=== PATIENT | male | born 1935 | race Caucasian/White ===

== ENCOUNTER 2017-07-25 13:45 | Emergency (ER) | payer OTHER ==
[2017-07-25 13:56] VITALS: BP 163/78
--- NOTE | 2017-07-25 14:46 | ER Document Report ---
ED General - General Chief Complaint: Abscess Stated Complaint: LEFT SHOULDER PAIN Time Seen by Provider: 07/25/17 14:44 Mode of Arrival: Ambulatory Information source: Patient Notes: 82 yr old male presents with complaints of left shoulder abscess cyst. Pt denies any fevers or chills, had similar episode i nthe past which was incised and drained 10 years aog, notes it has gotten angry in the past week , started on doxy by pcp TRAVEL OUTSIDE OF THE [place] IN LAST 30 DAYS: No - HPI Onset: Last week Onset/Duration: Persistent, Worse Quality of pain: Achy Severity: Moderate Pain Level: 3 Associated symptoms: Other Exacerbated by: Denies Relieved by: Denies Similar symptoms previously: Yes Recently seen / treated by doctor: Yes - Related Data Allergies/Adverse Reactions: codeine [Codeine] Allergy (Verified 07/25/17 13:53) Hallucinations midazolam HCl [From Versed] Allergy (Verified 07/25/17 13:53) Hyperactivity Home Medications: Current Home Medications Carvedilol [Coreg] 1 tab PO BID 07/25/17 [History] Furosemide 40 mg PO Q2DAYS 07/25/17 [History] Insulin Glargine,Hum.rec.anlog [Lantus Insulin 100 Unit/1 ml 10 ml] 22 unit SUBCUT DAILY 07/25/17 [History] Spironolactone 25 mg PO QAM 07/25/17 [History] Past Medical History - Social History Smoking Status: Never Smoker Cigarette use (# per day): No Chew tobacco use (# tins/day): No Smoking Education Provided: No Family History: Reviewed & Not Pertinent Patient has suicidal ideation: No Patient has homicidal ideation: No - Past Medical History Cardiac Medical History: Reports: Hx Congestive Heart Failure, Hx Coronary Artery Disease, Hx Heart Attack, Hx Hypertension, Hx Peripheral Vascular Disease Denies: Hx DVT, Hx Hypercholesterolemia, Hx Pulmonary Embolism Pulmonary Medical History: Denies: Hx Asthma, Hx COPD Neurological Medical History: Reports: Hx Cerebrovascular Accident. Denies: Hx Seizures Endocrine Medical History: Reports: Hx Diabetes Mellitus Type 1, Hx Diabetes Mellitus Type 2 - IDDM. Denies: Hx Hyperthyroidism, Hx Hypothyroidism Renal/ Medical History: Denies: Hx Peritoneal Dialysis Malignancy Medical History: Reports Hx Skin Cancer - lower lip excision GI Medical History: Reports: Hx Gastroesophageal Reflux Disease. Denies: Hx Cirrhosis, Hx Hepatitis Musculoskeltal Medical History: Reports Hx Arthritis Psychiatric Medical History: Reports: Hx Depression - Mild Infectious Medical History: Denies: Hx Hepatitis Past Surgical History: Reports: Hx Abdominal Surgery - hernia repair, Hx Adenoidectomy, Hx Appendectomy, Hx Cardiac Catheterization - with stents, Hx Cardiac Surgery - CABG; pacer, Hx Cholecystectomy, Hx Coronary Artery Bypass Graft - 3 vessel in 1998, Hx Coronary Stent - several, last one 5 years ago., Hx Pacemaker, Hx Tonsillectomy, Hx Vascular Surgery - AAA repair, Right Aorto- fem bypass, Other - Rerouting of his bile duct drainage into his small intestine , per patient - Immunizations Hx Diphtheria, Pertussis, Tetanus Vaccination: Yes Review of Systems - Review of Systems Notes: REVIEW OF SYSTEMS: CONSTITUTIONAL : Denies fever, chills, or sweats. Denies recent illness. EENT: Denies eye, ear, throat, or mouth pain or symptoms. Denies nasal or sinus congestion or discharge. Denies throat, tongue, or mouth swelling or difficulty swallowing. CARDIOVASCULAR: Denies chest pain. Denies palpitations or racing or irregular heart beat. Denies ankle edema. RESPIRATORY: Denies cough, cold, or chest congestion. Denies shortness of breath, difficulty breathing, or wheezing. GASTROINTESTINAL: Denies abdominal pain or distention. Denies nausea, vomiting , or diarrhea. Denies blood in vomitus, stools, or per rectum. Denies black, tarry stools. Denies constipation. GENITOURINARY: Denies difficulty urinating, painful urination, burning, frequency, blood in urine, or discharge. MUSCULOSKELETAL: Denies back or neck pain or stiffness. Denies joint pain or swelling. SKIN: abscess left shoulder HEMATOLOGIC : Denies easy bruising or bleeding. LYMPHATIC: Denies swollen, enlarged glands. NEUROLOGICAL: Denies confusion or altered mental status. Denies passing out or loss of consciousness. Denies dizziness or lightheadedness. Denies headache. Denies weakness or paralysis or loss of use of either side. Denies problems with gait or speech. Denies sensory loss, numbness, or tingling. Denies seizures. PSYCHIATRIC: Denies anxiety or stress. Denies depression, suicidal ideation, or homicidal ideation. ALL OTHER SYSTEMS REVIEWED AND NEGATIVE. Dictation was performed using Mystery[employer] recognition software PHYSICAL EXAMINATION: GENERAL: Well-appearing, well-nourished and in no acute distress. HEAD: Atraumatic, normocephalic. EYES: Pupils equal round and reactive to light, extraocular movements intact, sclera anicteric, conjunctiva are normal. ENT: Nares patent, oropharynx clear without exudates. Moist mucous membranes. NECK: Normal range of motion, supple without lymphadenopathy LUNGS: Breath sounds clear to auscultation bilaterally and equal. No wheezes rales or rhonchi. HEART: Regular rate and rhythm without murmurs ABDOMEN: Soft, nontender, nondistended abdomen. No guarding, no rebound. No masses appreciated. Musculoskeletal: Normal range of motion, no pitting or edema. No cyanosis. NEUROLOGICAL: Cranial nerves grossly intact. Normal speech, normal gait. Normal sensory, motor exams PSYCH: Normal mood, normal affect. SKIN: large cyst erythemetous 10x10 cm Physical Exam - Vital signs Vitals: Temp Pulse Resp BP Pulse Ox 97.4 F 72 16 163/78 H 99 07/25/17 13:55 07/25/17 13:55 07/25/17 13:55 07/25/17 13:55 07/25/17 13:55 Course - Re-evaluation Re-evalutation: 07/25/17 19:44 10x10 cm abscess of the left shoulder incised and drained large amount of thick pus with cystic material noted pt placed on antibiotics After performing a Medical Screening Examination, I estimate there is LOW risk for OPEN FRACTURE, COMPARTMENT SYNDROME, TENDON RUPTURE, ACUTE NEUROVASCULAR INJURY, or RETAINED FOREIGN BODY, thus I consider the discharge disposition reasonable. Also, there is no evidence or peritonitis, sepsis, or toxicity. I have reevaluated this patient multiple times and no significant life threatening changes are noted. The patient and I have discussed the diagnosis and risks, and we agree with discharging home with close follow-up with the understanding that symptoms and presentations can change. We also discussed returning to the Emergency Department immediately if new or worsening symptoms occur. We have discussed the symptoms which are most concerning (e.g., changing or worsening pain, fever, numbness, weakness, cool or painful digits) that necessitate immediate return. - Vital Signs Vital signs: Temp Pulse Resp BP Pulse Ox 97.4 F 72 16 163/78 H 99 07/25/17 13:55 07/25/17 13:55 07/25/17 13:55 07/25/17 13:55 07/25/17 13:55 Procedures - Incision and Drainage Left Shoulder Time completed: 15:50 Type: Complex, Single Anesthetic type: 1% Lidocaine mL's of anesthetic: 10 Blade size: 11 I&D procedure: Sterile dressing applied Incision Method: Incision made by scalpel Amount/type of drainage: Foul-smelling large amount of pus Discharge - Discharge Clinical Impression: Abscess Condition: Stable Disposition: HOME, SELF-CARE Instructions: Abscess ([facility]) Additional Instructions: Follow-up in 48 hours for reevaluation of your abscess or return immediately if there is any worsening symptoms fevers or any other concerns Prescriptions: Cephalexin Monohydrate [Keflex 500 mg Capsule] 500 mg PO QID #40 capsule Clindamycin HCl 300 mg PO Q6 #40 capsule Hydrocodone/Acetaminophen [Alma 5-325 mg Tablet] 1 tab PO Q6 #14 tablet Sulfamethoxazole/Trimethoprim [Bactrim Ds Tablet] 2 each PO BID #40 tablet Referrals: DEAN TORRES MD [Primary Care Provider] - Follow up as needed
[2017-07-25] MEDS ORDERED: LIDOCAINE 1% INJ-PF (10 MG/ML) 30 ML SDV ONE (14:48)
[2017-07-25] MEDS ORDERED: LIDOCAINE 1% INJ-PF (10 MG/ML) 30 ML SDV INFIL ONE (14:50)
[2017-07-25] MEDS ORDERED: LIDOCAINE 1% INJ-PF (10 MG/ML) 30 ML SDV INJ ONE (14:50)
== END 2017-07-25 15:57 | disposition home or self-care (01) ==
LOC: ER 13:45
PROC: 0H9CXZZ Drainage of Left Upper Arm Skin, External Approach (ICD-10-PCS; principal; 2017-07-25)
DX: L02.414 Cutaneous abscess of left upper limb (principal); M25.512 Pain in left shoulder
CPT/HCPCS: 99283

== ENCOUNTER 2017-07-28 13:24 | Emergency (ER) | payer OTHER ==
[2017-07-28 13:55] VITALS: BP 109/76
--- NOTE | 2017-07-28 14:35 | ER Document Report ---
ED Wound - General Chief Complaint: Wound Recheck Stated Complaint: WOUND RECHECK Time Seen by Provider: 07/28/17 14:32 Notes: Patient is an 82-year-old male presents emergency department for wound check. Patient was here for an I&D on 25 July. And initiated on antibiotics. Patient denies any fever, chills. Minimal bleeding from the site but otherwise denies any pain, drainage. It has been taking medications as prescribed. TRAVEL OUTSIDE OF THE [place] IN LAST 30 DAYS: No - Related Data Allergies/Adverse Reactions: codeine [Codeine] Allergy (Verified 07/25/17 13:53) Hallucinations midazolam HCl [From Versed] Allergy (Verified 07/25/17 13:53) Hyperactivity Past Medical History - Social History Smoking Status: Unknown if Ever Smoked Family History: Reviewed & Not Pertinent Patient has suicidal ideation: No Patient has homicidal ideation: No - Past Medical History Cardiac Medical History: Reports: Hx Congestive Heart Failure, Hx Coronary Artery Disease, Hx Heart Attack, Hx Hypertension, Hx Peripheral Vascular Disease Denies: Hx DVT, Hx Hypercholesterolemia, Hx Pulmonary Embolism Pulmonary Medical History: Denies: Hx Asthma, Hx COPD Neurological Medical History: Reports: Hx Cerebrovascular Accident. Denies: Hx Seizures Endocrine Medical History: Reports: Hx Diabetes Mellitus Type 1, Hx Diabetes Mellitus Type 2 - IDDM. Denies: Hx Hyperthyroidism, Hx Hypothyroidism Renal/ Medical History: Denies: Hx Peritoneal Dialysis Malignancy Medical History: Reports Hx Skin Cancer - lower lip excision GI Medical History: Reports: Hx Gastroesophageal Reflux Disease. Denies: Hx Cirrhosis, Hx Hepatitis Musculoskeltal Medical History: Reports Hx Arthritis Psychiatric Medical History: Reports: Hx Depression - Mild Infectious Medical History: Denies: Hx Hepatitis Past Surgical History: Reports: Hx Abdominal Surgery - hernia repair, Hx Adenoidectomy, Hx Appendectomy, Hx Bowel Surgery - bile duct rerouted into small intestines, Hx Cardiac Catheterization - with stents, Hx Cardiac Surgery - CABG; pacer, Hx Cholecystectomy, Hx Coronary Artery Bypass Graft - 3 vessel in 1998, Hx Coronary Stent - several, last one 5 years ago., Hx Pacemaker, Hx Tonsillectomy, Hx Vascular Surgery - AAA repair, Right Aorto-fem bypass, Other - Rerouting of his bile duct drainage into his small intestine, per patient - Immunizations Hx Diphtheria, Pertussis, Tetanus Vaccination: Yes Physical Exam - Vital signs Vitals: Temp Pulse Resp BP Pulse Ox 97.7 F 79 20 109/76 94 07/28/17 13:52 07/28/17 13:52 07/28/17 13:52 07/28/17 13:52 07/28/17 13:52 - General General appearance: Appears well, Alert In distress: None - Extremities General upper extremity: Nontender, Normal color, Normal ROM, Normal strength, Normal temperature - Skin Skin irregularity: Abscess - Left shoulder blade with previous I&D site with packing. Site without any surrounding induration mild erythema otherwise nontender to palpation Course - Re-evaluation Re-evalutation: 07/28/17 14:51 Patient is an 82-year-old male who is hemodynamic with stable, no acute distress and afebrile. Approximately 12 inches of packing removed from the wound with yellow drainage on them. Wound was repacked with iodoform gauze and dressed with dry sterile dressing. Patient follow-up in 3 days for wound check patient agrees with plan. - Vital Signs Vital signs: Temp Pulse Resp BP Pulse Ox 97.7 F 79 20 109/76 94 07/28/17 13:52 07/28/17 13:52 07/28/17 13:52 07/28/17 13:52 07/28/17 13:52 Discharge - Discharge Clinical Impression: Wound check, abscess Condition: Good Disposition: HOME, SELF-CARE Instructions: Post Incision and Drainage Additional Instructions: Please follow-up in 3 days for wound check. Referrals: DEAN TORRES MD [Primary Care Provider] - Follow up as needed
== END 2017-07-28 15:00 | disposition home or self-care (01) ==
LOC: ER 13:24
DX: Z48.01 Encounter for change or removal of surgical wound dressing (principal); L02.414 Cutaneous abscess of left upper limb; E11.51 Type 2 diabetes mellitus with diabetic peripheral angiopathy without gangrene; I25.10 Atherosclerotic heart disease of native coronary artery without angina pectoris; I25.2 Old myocardial infarction; I10 Essential (primary) hypertension; Z88.5 Allergy status to narcotic agent; Z88.4 Allergy status to anesthetic agent; Z85.828 Personal history of other malignant neoplasm of skin
CPT/HCPCS: 99282

== ENCOUNTER 2017-08-13 21:35 | Emergency (ER) | payer OTHER | END 2017-08-14 00:42 | disposition left against medical advice (07) | LOC: ER 21:35 | DX: Z53.9 Procedure and treatment not carried out, unspecified reason (principal); R11.10 Vomiting, unspecified; R10.9 Unspecified abdominal pain ==

== ENCOUNTER 2018-05-22 03:28 | Emergency (ER) | payer OTHER ==
[2018-05-22] MEDS ORDERED: ASPIRIN 81 MG TABLET, CHEWABLE PO ONE (03:33)
--- NOTE | 2018-05-22 03:39 | ER Document Report ---
ED Cardiac - General Mode of Arrival: Medic Information source: Patient TRAVEL OUTSIDE OF THE [place] IN LAST 30 DAYS: No <BERNABE ESPARZA - Last Filed: 05/22/18 05:30> <JARRODBRENNANDEBBY - Last Filed: 05/22/18 06:28> - General Stated Complaint: CHEST PAIN Time Seen by Provider: 05/22/18 03:33 Notes: 83 y.o male with CAD, CHF and HTN presents to the ED via EMS with SOB of onset around 0200 this morning. Pt reports that he woke up around 0200 and had since been SOB and fidgety. Pt describes his discomfort as a chest tightness causing his SOB but he denies any CP. Pt admits to some mild cough lately. He reports a PMHx of CVA, [place] and a PSHx of 3 vessel CABG, heart valve replacement, aortic bypass and defibrillator pacemaker placement. Pt's PCP is Dr. Elkins. 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 ( BERNABE ESPARZA) - Related Data Allergies/Adverse Reactions: codeine [Codeine] Allergy (Verified 07/25/17 13:53) Hallucinations midazolam HCl [From Versed] Allergy (Verified 07/25/17 13:53) Hyperactivity Past Medical History - General Information source: Patient - Social History Smoking Status: Former Smoker - 1987 Chew tobacco use (# tins/day): No Frequency of alcohol use: None Drug Abuse: None Family History: Reviewed & Not Pertinent - Past Medical History Cardiac Medical History: Reports: Hx Congestive Heart Failure, Hx Coronary Artery Disease, Hx Heart Attack, Hx Hypertension, Hx Peripheral Vascular Disease Neurological Medical History: Reports: Hx Cerebrovascular Accident Endocrine Medical History: Reports: Hx Diabetes Mellitus Type 2 - IDDM Renal/ Medical History: Denies: Hx Peritoneal Dialysis Malignancy Medical History: Reports Hx Skin Cancer - lower lip excision GI Medical History: Reports: Hx Gastroesophageal Reflux Disease Musculoskeletal Medical History: Reports Hx Arthritis Psychiatric Medical History: Reports: Hx Depression - Mild Past Surgical History: Reports: Hx Abdominal Surgery - hernia repair, Hx Adenoidectomy, Hx Appendectomy, Hx Bowel Surgery - bile duct rerouted into small intestines, Hx Cardiac Catheterization - with stents, Hx Cardiac Surgery - CABG; pacer, Hx Cholecystectomy, Hx Coronary Artery Bypass Graft - 3 vessel in 1998, Hx Coronary Stent - several, last one 5 years ago., Hx Pacemaker, Hx Tonsillectomy, Hx Vascular Surgery - AAA repair, Right Aorto-fem bypass, Other - Rerouting of his bile duct drainage into his small intestine, per patient - Immunizations Hx Diphtheria, Pertussis, Tetanus Vaccination: Yes <BERNABE ESPARZA - Last Filed: 05/22/18 05:30> Review of Systems - Review of Systems Constitutional: No symptoms reported EENT: No symptoms reported Cardiovascular: See HPI. denies: Chest pain Respiratory: See HPI, Cough, Short of breath Gastrointestinal: No symptoms reported Genitourinary: No symptoms reported Male Genitourinary: No symptoms reported Musculoskeletal: No symptoms reported Skin: No symptoms reported Hematologic/Lymphatic: No symptoms reported Neurological/Psychological: No symptoms reported -: Yes All other systems reviewed and negative <BERNABE ESPARZA - Last Filed: 05/22/18 05:30> Physical Exam <BERNABE ESPARZA - Last Filed: 05/22/18 05:30> <DEBBY HOUSTON - Last Filed: 05/22/18 06:28> - Vital signs Vitals: Resp 26 H 05/22/18 03:31 - Notes Notes: PHYSICAL EXAM GENERAL: Alert, interacts well. Appears SOB. HEAD: Normocephalic, atraumatic. EYES: Pupils equal, round, and reactive to light. Extraocular movements intact. ENT: Oral mucosa moist, tongue midline. NECK: Full range of motion. Supple. Trachea midline. LUNGS: Crackles to LT lower lobe. No wheezes, rales, or rhonchi. Appears SOB. Pt is on oxygen, not hypoxic on oxygen. HEART: Regular rate and rhythm. No murmurs, gallops, or rubs. ABDOMEN: Soft. Mild epigastric tenderness to palpation. Mildly distended. Bowel sounds present in all 4 quadrants. No guarding, rebound, or rigidity. Incisional hernia to abd which is easily reproducible. EXTREMITIES: Moves all 4 extremities spontaneously. Trace edema to feet. Radial and dorsalis pedis pulses 2/4 bilaterally. No cyanosis. NEUROLOGICAL: Alert and oriented x3. Normal speech. PSYCH: Normal affect, normal mood. SKIN: Warm, dry. No rashes or lesions noted. Multiple spider veins. (BERNABE ESPARZA) Course - Laboratory Result Diagrams: 05/22/18 03:01 05/22/18 04:56 <BERNABE ESPARZA - Last Filed: 05/22/18 05:30> - Laboratory Result Diagrams: 05/22/18 03:01 05/22/18 04:56 <DEBBY HOUSTON - Last Filed: 05/22/18 06:28> - Re-evaluation Re-evalutation: 05/22/18 06:20 CBC shows leukocytosis 11.2, mild anemia with hemoglobin of 11.0, platelets slightly low at 141, venous blood gas grossly unremarkable, CMP shows slightly elevated sodium at 146.1, BUN slightly elevated at 26, calcium slightly low at 7.8, troponin positive at 0.297, EKG shows slight ST segment depressions in V5 and V6, chest x-ray shows right lower lobe pneumonia, blood cultures have been obtained, lactic acid normal at 1.1, patient appears quite a bit more comfortable on oxygen. Patient was febrile on arrival, when looking at the infiltrate, leukocytosis, fever and cough I do suspect this infiltrate is a true pneumonia, patient has been started on Rocephin and blood cultures been obtained. After speaking with the resident Dr. Sahara kelsey at [facility] she has asked me to add doxycycline to the antibiotic regimen and obtain a sputum culture. Patient is not bringing up any sputum at this time but we will certainly add this if the patient brings anything up. Patient does have an elevated troponin and a history of congestive heart failure , as we do not have interventional cardiology and he would be high risk for cardiac catheterization the patient cannot stay here, his refrigerator repair technician practices at [facility], this is why have arranged transfer to [facility]. Dr. Shoemaker the resident has accepted the patient on behalf of Dr. Diaz. Also requests that we give Lasix despite the fact that he has no evidence of overt failure at this time. (DEBBY HOUSTON) - Vital Signs Vital signs: Temp Pulse Resp BP Pulse Ox 98.6 F 22 H 128/52 H 98 05/22/18 06:11 05/22/18 06:01 05/22/18 06:01 05/22/18 06:01 - Laboratory Laboratory results interpreted by me: 05/22/18 05/22/18 03:01 04:56 WBC 11.2 H RBC 3.44 L Hgb 11.0 L Hct 34.2 L MCV 99 H RDW 15.8 H Plt Count 141 L Sodium 146.1 H Chloride 112 H BUN 26 H Est GFR (Non-Af Amer) 59 L Glucose 171 H Calcium 7.8 L Total Protein 5.8 L Albumin 3.1 L - EKG Interpretation by Me Additional EKG results interpreted by me: 05/22/18 06:26 EKG shows a combination of sinus rhythm at a date of 76 and AV paced complexes, there is an interventricular conduction delay, some minimal ST segment depressions in V5 and V6, no significant ST segment elevations, there are T- wave inversions in lead I, aVL per my interpretation. (DEBBY HOUSTON) Discharge <BERNABE ESPARZA - Last Filed: 05/22/18 05:30> <DEBBY HOUSTON - Last Filed: 05/22/18 06:28> - Discharge Clinical Impression: Non-STEMI (non-ST elevated myocardial infarction) Right lower lobe pneumonia Qualifiers: Pneumonia type: due to unspecified organism Qualified Code(s): J18.1 - Lobar pneumonia, unspecified organism Condition: Fair Disposition: [facility] Referrals: DEAN ELKINS MD [Primary Care Provider] - Follow up as needed Scribe Attestation: 05/22/18 06:28 I personally performed the services described in the documentation, reviewed and edited the documentation which was dictated to the scribe in my presence, and it accurately records my words and actions. (DEBBY HOUSTON) Scribe Documentation - Scribe Written by Taty:: Taty Charles 05/22/18 0345 acting as scribe for :: Juancho <BERNABE ESPARZA - Last Filed: 05/22/18 05:30>
--- NOTE | 2018-05-22 04:24 | RADIOLOGY REPORT (SQ) ---
EXAM DESCRIPTION: XR CHEST 2 VIEWS COMPLETED DATE/TME: 05/22/2018 03:43 CLINICAL HISTORY: 83 years, Male, cough, fever, SOB COMPARISON: 09/09/2016 NUMBER OF VIEWS: Two TECHNIQUE: Two views of the chest LIMITATIONS: None. FINDINGS: There are right basilar airspace opacities. The heart is at the upper limit of normal in size with a left chest wall pacemaker/AICD in place. There is no pneumothorax or pleural effusion. There is no acute fracture. IMPRESSION: Right basilar airspace opacities, which may represent atelectasis or pneumonia. 2011 [employer]- All Rights Reserved
[2018-05-22 04:26] LABS: ABSOLUTE EOSINOPHILS # (AUTO) 0.2 10^3/uL (0.0-0.6); ABSOLUTE LYMPHOCYTES (AUTO) 3.3 10^3/uL (0.5-4.7); ABSOLUTE MONOCYTES (AUTO) 1.1 10^3/uL (0.1-1.4); ABSOLUTE NEUT (AUTO) 6.6 10^3/uL (1.7-8.2); BASOPHILS % (AUTO) 0.4 % (0-2); EOSINOPHILS % (AUTO) 1.7 % (0-6); HEMATOCRIT 34.2 % (37.9-51.0); LYMPHOCYTES % (AUTO) 29.5 % (13-45); MEAN CORPUSCULAR HEMOGLOBIN 32.1 pg (27.0-33.4); MEAN CORPUSCULAR HGB CONC 32.3 g/dL (32.0-36.0); MEAN CORPUSCULAR VOLUME 99 fl (80-97); MONOCYTES % (AUTO) 9.9 % (3-13); PLATELET COUNT 141 10^3/uL (150-450); RED BLOOD COUNT 3.44 10^6/uL (4.35-5.55); RED CELL DISTRIBUTION WIDTH 15.8 % (11.5-14.0); SEGMENTED NEUTROPHILS % (AUTO) 58.5 % (42-78); TOTAL CELLS COUNTED % (AUTO) 100 %; WHITE BLOOD COUNT 11.2 10^3/uL (4.0-10.5)
[2018-05-22 04:27] LABS: VENOUS BLOOD BASE EXCESS -3.5 mmol/L; VENOUS BLOOD HCO3 20.8 mmol/L (20-32); VENOUS BLOOD PCO2 35.5 mmHg (35-63); VENOUS BLOOD PH 7.39 (7.30-7.42)
[2018-05-22] MEDS ORDERED: CEFTRIAXONE INJ 1000 MG VIAL IV ONE (04:30)
[2018-05-22 04:54] LABS: CREATINE KINASE MB 2.34 ng/mL (<4.55)
[2018-05-22 04:59] LABS: TROPONIN I 0.297 ng/mL
[2018-05-22 05:18] LABS: ALANINE AMINOTRANSFERASE 25 U/L (21-72); ALBUMIN 3.1 g/dL (3.5-5.0); ALKALINE PHOSPHATASE 68 U/L (38-126); ANION GAP 10 (5-19); ASPARTATE AMINO TRANSFERASE 22 U/L (17-59); BILIRUBIN,DIRECT 0.4 mg/dL (0.0-0.4); BILIRUBIN,TOTAL 0.6 mg/dL (0.2-1.3); BLOOD UREA NITROGEN 26 mg/dL (7-20); CALCIUM 7.8 mg/dL (8.4-10.2); CARBON DIOXIDE 24 mmol/L (22-30); CHLORIDE 112 mmol/L (98-107); CREATINE KINASE 103 U/L (55-170); GLUCOSE 171 mg/dL (75-110); POTASSIUM 4.3 mmol/L (3.6-5.0); SODIUM 146.1 mmol/L (137-145); TOTAL PROTEIN 5.8 g/dL (6.3-8.2)
[2018-05-22] MEDS ORDERED: DOXYCYCLINE HYCLATE INJ 100 MG VIAL IV ONE (06:27)
[2018-05-22] MEDS ORDERED: FUROSEMIDE INJ/PF 40 MG/4 ML SDV IV ONE (06:27)
[2018-05-22 06:53] LABS: TROPONIN I 0.645 ng/mL
--- NOTE | 2018-05-22 09:17 | ER Document Report ---
Doctor's Note Notes: 05/22/18 09:17 Patient seen and evaluated prior to transport. No acute distress. Stable for transfer at this time.
[2018-05-22 09:19] VITALS: BP 113/45
--- NOTE | 2018-05-22 18:17 | EKG REPORT ---
SEVERITY:- ABNORMAL ECG - ATRIAL-PACED COMPLEXES VS SINUS RHYTHM NONSPECIFIC INTRAVENTRICULAR CONDUCTION DELAY MINIMAL ST DEPRESSION, LATERAL LEADS : Confirmed by: Khadijah Merino 22-May-2018 18:17:33
== END 2018-05-22 09:19 | disposition short-term general hospital (02) ==
LOC: ER 03:28
DX: I21.4 Non-ST elevation (NSTEMI) myocardial infarction (principal); J18.1 Lobar pneumonia, unspecified organism; R07.9 Chest pain, unspecified; R06.02 Shortness of breath; I25.10 Atherosclerotic heart disease of native coronary artery without angina pectoris; I50.9 Heart failure, unspecified; I11.0 Hypertensive heart disease with heart failure; Z86.73 Personal history of transient ischemic attack (TIA), and cerebral infarction without residual deficits; E11.9 Type 2 diabetes mellitus without complications; Z79.4 Long term (current) use of insulin; Z95.1 Presence of aortocoronary bypass graft; Z95.810 Presence of automatic (implantable) cardiac defibrillator
CPT/HCPCS: 93005; 99285; 96375; 96365; 96367; 36415; 87040; 87070; 87205; 82553; 82550; 85025; 80053; 84484; 82803; 83605; 83880; 71046; 93010; J3490; J1940; J0696

== ENCOUNTER 2018-12-15 07:44 | Day surgery (SDC) | payer OTHER ==
[~2018-12-15 07:44] MED LIST: BUPIVACAINE HCL 0.75% INJ/PF (7.5 MG/1 ML) 10 ML SDV OD PRN; CHONDR SU A NA/HYALUR INTRAOC KIT (SURGICARE) ONE; EPINEPHRINE INJ/PF 1 MG/1 ML AMPULE ONE; KETOROLAC TROMETHAMINE 0.45% 4 DROP/0.4 ML DROPERETTE OD PRN; LIDOCAINE 1% INJ-PF (10 MG/ML) 30 ML SDV ONE; LIDOCAINE 4% INJ/PF (40 MG/ML) 5 ML AMPUL OD PRN
[2018-12-15] MEDS: CYCLOPENTOLATE 0.2%/PHENYLEPHRINE 1% OPH SOLN 2 ML OD PRN ×3 (08:40→09:05)
[2018-12-15] MEDS: TROPICAMIDE 1% OPH SOLN 3 ML OD PRN ×3 (08:40→09:05)
[2018-12-15] MEDS: TETRACAINE HCL 0.5% OPH SOLN 0.6 ML DROPERETTE OD PRN ×2 (08:40→09:05)
[2018-12-15] MEDS: BESIFLOXACIN HCL 0.6% OPH SUSP 5 ML BOTTLE OD PRN ×4 (08:40→09:44)
[2018-12-15] MEDS ORDERED: MIDAZOLAM 2 MG/2 ML INJ ONE (08:59)
[2018-12-15] MEDS ORDERED: LIDOCAINE 1%/PHENYLEPHRINE 1.5% 1 ML VIAL ONE (09:13)
[2018-12-15] MEDS: DORZOLAMIDE HCL 2%/TIMOLOL MALEAT 0.5% OPH SOLN 10 ML OD PRN ×2 (09:44)
[2018-12-15] MEDS ORDERED: PROPOFOL INJ 200 MG/20 ML VIAL IV ONE (09:47)
--- NOTE | 2018-12-15 10:03 | [facility] DISCHARGE SUMMARY E ---
[facility] Discharge Summary NAME: SAYDA ROOT AGE: 83Y ADMITTED: 12/15/2018 DISCHARGED: 12/15/2018 FINAL DIAGNOSIS: CATARACT, RIGHT EYE HOSPITAL COURSE: The patient is a 83-year-old gentleman who underwent uneventful cataract extraction with intraocular lens implant, right eye on 12/15/201818. He will be discharged to home. He is instructed to resume preoperative medications, take Tylenol as needed for discomfort, to keep his eye shielded, to use Predforte, Ketorolac, and Vigamox at 3 p.m. and 8 p.m., and to follow up in my office in 1 day. DICTATING PHYSICIAN: HUNG BORGES M.D. [id number] Y#: [id number] ID: [id number] JOB#: [id number] ACCT: [id number] cc:HUNG BORGES M.D. >
--- NOTE | 2018-12-15 10:03 | [facility] OPERATIVE REPORT E ---
[facility] Operative Report NAME: SAYDA ROOT AGE: 83Y DATE OF SURGERY: 12/15/2018 ROOM: PREOPERATIVE DIAGNOSIS: CATARACT, RIGHT EYE. POSTOPERATIVE DIAGNOSIS: CATARACT, RIGHT EYE. PROCEDURE PERFORMED: PHACOEMULSIFICATION WITH POSTERIOR CHAMBER INTRAOCULAR LENS, RIGHT EYE. SURGEON: HUNG BORGES MD ANESTHESIA: TOPICAL WITH MAC. INDICATIONS FOR SURGERY: Difficulty reading road signs and TV. PROCEDURE: The patient was brought to the Operating Room and placed on the operative table. Following tetracaine drops, topical anesthesia was administered. This consisted of instrument wipe pledgets soaked in a solution of 4% Xylocaine mixed with 0.75% Marcaine in a 1:2 ratio. A 2 x 1 cm pledget was placed in the superior fornix. A 1 x 1 cm pledget was placed in the inferior fornix. The eye was patched shut for 5 minutes. The patch was removed. The eye was sterilely prepped and draped in the usual manner. Lid speculum was placed in the eye. The pledgets were removed. 4-0 black silk sutures were placed around the superior and the inferior rectus muscles to be used as traction. A conjunctival peritomy was made at the 10 o'clock position. Hemostasis was obtained with bipolar cautery. A posterior limbal groove was created using a crescent knife and dissected anteriorly towards the cornea. A sharp point blade was used to create a paracentesis site at the 2 o'clock position. A 2.4 mm keratome was used to enter the anterior chamber through the groove. Viscoelastic was injected into the anterior chamber. An anterior capsulotomy was performed using Utrata forceps in a capsulorrhexis fashion. Hydrodissection and hydrodelineation were performed. Phacoemulsification was performed in [id number] technique. A total of 6.52 CDE phaco time was used. Following this, the I/A unit was used to remove residual cortex. Viscoelastic was injected into the capsular bag. Intraocular lens model [id number], 21.0 diopters, serial number [id number] was placed in the capsular bag. The I/A unit was used to remove residual viscoelastic. The wound was seen to be watertight under high and low pressure, and no sutures were placed. The intraocular lens was well centered. The pressure was adjusted in the eye to normal pressure. The 4-0 black silk sutures and lid speculum were removed. The eye was shielded after Besivance drops were placed. The patient tolerated the procedure well and was sent to the Recovery Room in good condition. DICTATING PHYSICIAN: HUNG BORGES M.D. DICTATING PHYSICIAN: HUNG BORGES M.D. [id number] PHY#: [id number] ID: [id number] JOB#: [id number] ACCT: [id number] cc:HUNG BORGES M.D. >
== END 2018-12-15 10:19 | disposition home or self-care (01) ==
LOC: SC 07:44
PROVIDERS: ATTEND Ophthalmology
DX: H25.811 Combined forms of age-related cataract, right eye (principal); I10 Essential (primary) hypertension; E11.9 Type 2 diabetes mellitus without complications; M10.9 Gout, unspecified; Z79.1 Long term (current) use of non-steroidal anti-inflammatories (NSAID); Z79.02 Long term (current) use of antithrombotics/antiplatelets; Z79.82 Long term (current) use of aspirin; Z86.73 Personal history of transient ischemic attack (TIA), and cerebral infarction without residual deficits; Z79.899 Other long term (current) drug therapy; Z95.0 Presence of cardiac pacemaker; Z87.891 Personal history of nicotine dependence
CPT/HCPCS: 66984; 82962; V2632; J3490 ×3; A9270; J0171; J2704; J2370; 142; J2250

== ENCOUNTER 2019-01-14 08:25 | Day surgery (SDC) | payer OTHER ==
[~2019-01-14 08:25] MED LIST changes: -BUPIVACAINE HCL 0.75% INJ/PF (7.5 MG/1 ML) 10 ML SDV OD PRN; +BUPIVACAINE HCL 0.75% INJ/PF (7.5 MG/1 ML) 10 ML SDV OS PRN; -CHONDR SU A NA/HYALUR INTRAOC KIT (SURGICARE) ONE; -EPINEPHRINE INJ/PF 1 MG/1 ML AMPULE ONE; -KETOROLAC TROMETHAMINE 0.45% 4 DROP/0.4 ML DROPERETTE OD PRN; +KETOROLAC TROMETHAMINE 0.45% 4 DROP/0.4 ML DROPERETTE OS PRN; -LIDOCAINE 1% INJ-PF (10 MG/ML) 30 ML SDV ONE; -LIDOCAINE 4% INJ/PF (40 MG/ML) 5 ML AMPUL OD PRN; +LIDOCAINE 4% INJ/PF (40 MG/ML) 5 ML AMPUL OS PRN
[2019-01-14] MEDS ORDERED: LIDOCAINE 1% INJ-PF (10 MG/ML) 30 ML SDV ONE (08:37)
[2019-01-14] MEDS ORDERED: EPINEPHRINE INJ/PF 1 MG/1 ML AMPULE ONE (08:37)
[2019-01-14] MEDS ORDERED: CHONDR SU A NA/HYALUR INTRAOC KIT (SURGICARE) ONE (08:38)
[2019-01-14] MEDS: TROPICAMIDE 1% OPH SOLN 3 ML OS PRN ×2 (09:13→09:28)
[2019-01-14] MEDS: CYCLOPENTOLATE 0.2%/PHENYLEPHRINE 1% OPH SOLN 2 ML OS PRN ×2 (09:13→09:28)
[2019-01-14] MEDS: BESIFLOXACIN HCL 0.6% OPH SUSP 5 ML BOTTLE OS PRN ×4 (09:14→10:00)
[2019-01-14] MEDS: TETRACAINE HCL 0.5% OPH SOLN 0.6 ML DROPERETTE OS PRN ×2 (09:15→09:29)
[2019-01-14] MEDS ORDERED: FENTANYL CITRATE INJ/PF 100 MCG/2 ML AMPUL ONE (09:22)
[2019-01-14] MEDS ORDERED: MIDAZOLAM 2 MG/2 ML INJ ONE (09:22)
[2019-01-14] MEDS ORDERED: LIDOCAINE 2% INJ-PF (100 MG/5 ML) SYRINGE ONE (09:24)
[2019-01-14] MEDS ORDERED: PROPOFOL INJ 200 MG/20 ML VIAL IV ONE (09:24)
[2019-01-14] MEDS ORDERED: LIDOCAINE 1%/PHENYLEPHRINE 1.5% 1 ML VIAL ONE (09:25)
[2019-01-14] MEDS: DORZOLAMIDE HCL 2%/TIMOLOL MALEAT 0.5% OPH SOLN 10 ML OS PRN ×2 (10:00)
--- NOTE | 2019-01-14 10:09 | [facility] OPERATIVE REPORT E ---
[facility] Operative Report NAME: SAYDA ROOT AGE: 84Y DATE OF SURGERY: 01/14/2019 ROOM: PREOPERATIVE DIAGNOSIS: Cataract, left eye. POSTOPERATIVE DIAGNOSIS: Cataract, left eye. PROCEDURE PERFORMED: Phacoemulsification with posterior chamber intraocular lens, left eye. SURGEON: HUNG BORGES M.D. ANESTHESIA: Topical with MAC. INDICATIONS FOR SURGERY: Difficulty reading road signs and small print. PROCEDURE: The patient was brought to the operating room and placed on the operative table. Following tetracaine drops, topical anesthesia was administered. This consisted of instrument wipe pledgets soaked in a solution of 4% Xylocaine mixed with 0.75% Marcaine in a 1:2 ratio. A 2 x 1 cm pledget was placed in the superior fornix. A 1 x 1 cm pledget was placed in the inferior fornix. The eye was patched shut for 5 minutes. The patch was removed. The eye was sterilely prepped and draped in the usual manner. Lid speculum was placed in the eye. The pledgets were removed and 4-0 black silk sutures were placed around the superior and the inferior rectus muscles to be used as traction. A conjunctival peritomy was made at the 10 o'clock position. Hemostasis was obtained with bipolar cautery. A posterior limbal groove was created using a crescent knife and dissected anteriorly towards the cornea. A sharp point blade was used to create a paracentesis site at the 2 o'clock position. A 2.4 mm keratome was used to enter the anterior chamber through the groove. Viscoelastic was injected into the anterior chamber. An anterior capsulotomy was performed using Utrata forceps in a capsulorrhexis fashion. Hydrodissection and hydrodelineation were performed. Phacoemulsification was performed in wefgdw-nce-wgkzeyd technique. Total phaco time was 5.65 CDE. Following this, the I/A unit was used to remove residual cortex. Viscoelastic was injected into the capsular bag. Intraocular lens model SN60WF, 21.0 diopters, serial number [id number], was placed in the capsular bag. The I/A unit was used to remove residual viscoelastic. The wound was seen to be watertight under high and low pressure, and no sutures were placed. The intraocular lens was well centered. The pressure was adjusted in the eye to normal pressure. The 4-0 black silk sutures and lid speculum were removed. The eye was shielded after Besivance drops were placed. The patient tolerated the procedure well and was sent to the recovery room in good condition. DICTATING PHYSICIAN: HUNG BORGES M.D. [id number] PHY#: [id number] ID: [id number] JOB#: [id number] ACCT: [id number] cc:HUNG BORGES M.D. >
--- NOTE | 2019-01-14 10:13 | [facility] DISCHARGE SUMMARY E ---
[facility] Discharge Summary NAME: SAYDA ROOT AGE: 84Y ADMITTED: 01/14/2019 DISCHARGED: 01/14/2019 FINAL DIAGNOSIS: Cataract, left eye. HOSPITAL COURSE: The patient is an 84-year-old gentleman who underwent uneventful cataract extraction with intraocular lens implant, left eye, on 01/14/2019. He will be discharged to home. He was instructed to resume preoperative medications; to take Tylenol as needed for discomfort; to keep his eye shielded; to use Pred Forte, Ketorolac, and Vigamox at 3 p.m. and 8 p.m.; and to follow up in my office in 1 day. DICTATING PHYSICIAN: HUNG BORGES M.D. [id number] PHY#: [id number] ID: [id number] JOB#: [id number] ACCT: [id number] cc:HUNG BORGES M.D. >
== END 2019-01-14 10:40 | disposition home or self-care (01) ==
LOC: SC 08:25
PROVIDERS: ATTEND Ophthalmology
DX: H25.812 Combined forms of age-related cataract, left eye (principal); Z96.1 Presence of intraocular lens; H57.03 Miosis; J44.9 Chronic obstructive pulmonary disease, unspecified; I10 Essential (primary) hypertension; Z86.73 Personal history of transient ischemic attack (TIA), and cerebral infarction without residual deficits; E11.9 Type 2 diabetes mellitus without complications; Z79.82 Long term (current) use of aspirin; Z79.899 Other long term (current) drug therapy; Z79.4 Long term (current) use of insulin; Z95.0 Presence of cardiac pacemaker
CPT/HCPCS: 66984; 82962; V2632; J3490 ×3; J0171; J2001; J2704; J2370; 142; J2250; J3010

== ENCOUNTER 2020-05-30 09:56 | Outpatient (CLI) | payer MEDICARE, OTHER ==
[~2020-05-30 09:56] MED LIST changes: -BUPIVACAINE HCL 0.75% INJ/PF (7.5 MG/1 ML) 10 ML SDV OS PRN; +FERRIC CARBOXYMALTOSE 750 MG in NORMAL SALINE 250 ML IV PRN; -KETOROLAC TROMETHAMINE 0.45% 4 DROP/0.4 ML DROPERETTE OS PRN; -LIDOCAINE 4% INJ/PF (40 MG/ML) 5 ML AMPUL OS PRN
[2020-05-30 10:26] VITALS: BP 119/51
== END 2020-05-30 11:55 | disposition home or self-care (01) ==
LOC: II 09:56 → 5TH 10:15 → II 11:55
PROVIDERS: ATTEND Internal Medicine Nephrology
DX: D50.8 Other iron deficiency anemias (principal)
CPT/HCPCS: 96365; J7050; J1439